=== PATIENT | female | born 1995 | race Caucasian/White ===

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

== ENCOUNTER 2017-09-04 06:29 | Inpatient (IN) | payer OTHER ==
[~2017-09-04] VITALS: Ht 154.9 cm; Wt 63.0 kg
[2017-09-04] VITALS (12 sets, daily range): BP systolic 104–128; BP diastolic 57–78
[2017-09-04] MEDS ORDERED: PERCOCET 5/31 TABLET PO (07:21)
[2017-09-04] MEDS ORDERED: BENADRYL50 MG PO (07:22)
[2017-09-04 08:55] LABS: AMPHETAMINE NEGATIVE (500 ng/mL); BARBITURATES NEGATIVE (200 ng/mL); BENZODIAZEPINES NEGATIVE (150 ng/mL); BUPRENORPHINE NEGATIVE (10 ng/mL); COCAINE NEGATIVE (150 ng/mL); METHADONE NEGATIVE (200 ng/mL); METHAMPHETAMINE NEGATIVE (500 ng/mL); OPIATES (MORPHINE) NEGATIVE (100 ng/mL); OXYCODONE PRESUMPTIVE POSITIVE (100 ng/mL); PHENCYCLIDINE NEGATIVE (25 ng/mL); PROPOXYPHENE NEGATIVE (300 ng/mL); THC CANNABINOIDS NEGATIVE (50 ng/mL); TRICYCLIC ANTIDEPRESSANTS NEGATIVE (300 ng/mL)
[2017-09-04 08:56] LABS: BASOPHIL (%) 0.4 % (0-1); BASOPHIL COUNT 0.1 K/uL (0-0.1); EOSINOPHIL (%) 0.7 % (0-5); EOSINOPHIL COUNT 0.1 K/uL (0-0.3); HEMATOCRIT 34.5 % (36.0-46.0); HEMOGLOBIN 11.4 G/DL (11.9-15.5); IMMATURE GRANULOCYTE (%) 0.6 % (0.0-0.7); LYMPHOCYTE (%) 21.1 % (15-42); MCH 24.7 PG (29.0-34.0); MCV 74.7 FL (83-99); MONOCYTE (%) 7.2 % (3-12); NEUTROPHIL COUNT 9.9 K/uL (1.8-6.4); PLATELET COUNT 248 K/uL (156-360); RBC DIS.WIDTH-CV 14.9 % (11.8-14.6); RBC DIS.WIDTH-SD 40.1 % (39-53); RED BLOOD COUNT 4.62 M/uL (3.80-5.20); WHITE BLOOD COUNT 14.2 K/uL (4.1-10.2)
[2017-09-05 05:50] LABS: BASOPHIL (%) 0.2 % (0-1); BASOPHIL COUNT 0.1 K/uL (0-0.1); EOSINOPHIL (%) 0.7 % (0-5); EOSINOPHIL COUNT 0.2 K/uL (0-0.3); HEMATOCRIT 33.7 % (36.0-46.0); HEMOGLOBIN 10.8 G/DL (11.9-15.5); IMMATURE GRANULOCYTE (%) 0.8 % (0.0-0.7); LYMPHOCYTE (%) 15.5 % (15-42); LYMPHOCYTE COUNT 3.3 K/uL (1.0-2.8); MCH 24.7 PG (29.0-34.0); MCV 76.9 FL (83-99); MONOCYTE (%) 9.4 % (3-12); NEUTROPHIL (%) 73.4 % (45-76); NEUTROPHIL COUNT 15.7 K/uL (1.8-6.4); PLATELET COUNT 238 K/uL (156-360); RBC DIS.WIDTH-SD 41.2 % (39-53); RED BLOOD COUNT 4.38 M/uL (3.80-5.20); WHITE BLOOD COUNT 21.4 K/uL (4.1-10.2)
[2017-09-05 16:30] VITALS: BP 97/56
[2017-09-06 07:23] VITALS: BP 101/58
[2017-09-06] MEDS ORDERED: DOCUSATE SODIU100 MG PO (10:09)
[2017-09-06] MEDS ORDERED: CAMILA0.35 MG PO (10:09)
[2017-09-06] MEDS ORDERED: IBUPROFEN800 MG PO (10:09)
[2017-09-06] MEDS ORDERED: FERROCITE324 MG PO (10:10)
== END 2017-09-06 16:00 | disposition home or self-care (01) | DRG 775 ==
LOC: LDRP-OP 06:29 → 2WEST 06:30 → LDRP-OP 08:17 → 2WEST 12:33
PROVIDERS: Advanced Practice Midwife
DX: O71.4 Obstetric high vaginal laceration alone (principal); O63.0 Prolonged first stage (of labor); O69.81X0 Labor and delivery complicated by cord around neck, without compression, not applicable or unspecified; O48.0 Post-term pregnancy; O99.02 Anemia complicating childbirth; D62 Acute posthemorrhagic anemia; Z3A.40 40 weeks gestation of pregnancy; Z37.0 Single live birth
CPT/HCPCS: 85025

== ENCOUNTER 2017-09-18 13:11 | Inpatient (IN) | payer OTHER ==
[~2017-09-18] VITALS: Ht 154.9 cm; Wt 57.8 kg
[~2017-09-18 13:11] MED LIST changes: +BENADRYL50 MG PO; +CAMILA0.35 MG PO; +DOCUSATE SODIU100 MG PO; +FERROCITE324 MG PO; +IBUPROFEN800 MG PO; +PERCOCET 5/31 TABLET PO
[2017-09-18 14:10] LABS: HEMATOCRIT 36.1 % (36.0-46.0); HEMOGLOBIN 11.8 G/DL (11.9-15.5); MCH 24.9 PG (29.0-34.0); MCHC 32.7 G/DL (30.0-36.0); MCV 76.3 FL (83-99); PLATELET COUNT 250 K/uL (156-360); RBC DIS.WIDTH-CV 14.8 % (11.8-14.6); RBC DIS.WIDTH-SD 41.4 % (39-53); RED BLOOD COUNT 4.73 M/uL (3.80-5.20); WHITE BLOOD COUNT 21.2 K/uL (4.1-10.2)
[2017-09-18 14:29] LABS: APPEARANCE SL.HAZY ((CLEAR)); BILIRUBIN NEGATIVE; BLOOD LARGE; COLOR YELLOW ((YELLOW)); GLUCOSE (STRIP) NEGATIVE; KETONES NEGATIVE; LEUKOCYTES MODERATE; NITRITE NEGATIVE; PROTEIN (STRIP) NEGATIVE; SPECIFIC GRAVITY 1.016 (1.000-1.030); UROBILINOGEN 0.2 MG/DL (0.2-1.0)
[2017-09-18 14:39] LABS: BACTERIA NONE SEEN /HPF; EPITHELIAL CELLS RARE /HPF; MUCUS TRACE /LPF; RED BLOOD CELLS TNTC /HPF (0-5); UCUL ADDED? YES; WHITE BLOOD CELLS 15-20 /HPF (0-5)
[2017-09-18 14:59] LABS: QUANTITATIVE HCG < 4.0 MIU/ML
[2017-09-18 15:12] LABS: ALBUMIN 3.8 G/DL (3.2-4.8); CHLORIDE 102 MEQ/L (99-109); POTASSIUM 3.8 MEQ/L (3.7-5.4); SODIUM 137 MEQ/L (136-147); TOTAL BILIRUBIN 0.8 MG/DL (0.0-1.0)
[2017-09-18 15:17] LABS: ALKALINE PHOSPHATASE 110 IU/L (3-129); ALT (GPT) 13 IU/L (3-49); AST (GOT) 13 IU/L (2-34); CREATININE 0.7 MG/DL (0.6-1.3); GFR ESTIMATE (CALCULATED) > 59 mL/min/; GLUCOSE 103 mg/dL (70-99); TOTAL PROTEIN 6.4 G/DL (6.4-8.3); UREA NITROGEN (BUN) 8 mg/dL (9-23)
[2017-09-18] MEDS ORDERED: MACROBID100 MG PO (16:50)
[2017-09-18] MEDS ORDERED: FERROCITE324 MG PO (16:50)
[2017-09-18 17:17] LABS: INTER. NORMALIZED RATIO 1.2
[2017-09-18 17:19] LABS: PTT 29.4 SEC (25-37)
[2017-09-18 17:49] LABS: TROP-I INTERPRETATION NEGATIVE; TROPONIN-I 0.07 ng/mL (0.0-0.30)
[2017-09-18 19:24] LABS: INTER. NORMALIZED RATIO 1.2
[2017-09-18 19:27] LABS: PTT 29.9 SEC (25-37)
[2017-09-18 19:47] LABS: TROP-I INTERPRETATION NEGATIVE; TROPONIN-I < 0.01 ng/mL (0.0-0.30)
[2017-09-19 01:08] VITALS: BP 93/53
[2017-09-19 03:25] VITALS: BP 107/55
[2017-09-19 06:40] LABS: BASOPHIL COUNT 0.1 K/uL (0-0.1); EOSINOPHIL (%) 4.6 % (0-5); EOSINOPHIL COUNT 0.6 K/uL (0-0.3); HEMATOCRIT 33.9 % (36.0-46.0); HEMOGLOBIN 10.7 G/DL (11.9-15.5); IMMATURE GRANULOCYTE (%) 0.6 % (0.0-0.7); LYMPHOCYTE (%) 14.3 % (15-42); LYMPHOCYTE COUNT 1.8 K/uL (1.0-2.8); MCH 24.5 PG (29.0-34.0); MCHC 31.6 G/DL (30.0-36.0); MCV 77.6 FL (83-99); MONOCYTE (%) 5.3 % (3-12); MONOCYTE COUNT 0.7 K/uL (0-0.8); NEUTROPHIL (%) 74.2 % (45-76); NEUTROPHIL COUNT 9.3 K/uL (1.8-6.4); PLATELET COUNT 214 K/uL (156-360); RBC DIS.WIDTH-SD 42.6 % (39-53); RED BLOOD COUNT 4.37 M/uL (3.80-5.20); WHITE BLOOD COUNT 12.6 K/uL (4.1-10.2)
[2017-09-19 07:04] LABS: CREATININE 0.6 MG/DL (0.6-1.3); GFR ESTIMATE (CALCULATED) > 59 mL/min/; GLUCOSE 97 mg/dL (70-99); POTASSIUM 3.7 MEQ/L (3.7-5.4); SODIUM 143 MEQ/L (136-147); UREA NITROGEN (BUN) 4 mg/dL (9-23)
[2017-09-19 07:18] LABS: CHLORIDE 114 MEQ/L (99-109)
[2017-09-19 07:25] VITALS: BP 103/53
[2017-09-19 11:47] VITALS: BP 112/68
[2017-09-19] MEDS ORDERED: DYNAPEN 250 MG250 MG PO (12:37)
[2017-09-19 15:58] VITALS: BP 102/60
[2017-09-19 20:15] VITALS: BP 114/55
[2017-09-20 00:02] VITALS: BP 115/56
[2017-09-20 03:43] VITALS: BP 110/60
[2017-09-20 06:06] LABS: HEMATOCRIT 33.9 % (36.0-46.0); HEMOGLOBIN 10.4 G/DL (11.9-15.5); MCHC 30.7 G/DL (30.0-36.0); MCV 78.3 FL (83-99); PLATELET COUNT 218 K/uL (156-360); RBC DIS.WIDTH-CV 14.8 % (11.8-14.6); RBC DIS.WIDTH-SD 42.6 % (39-53); RED BLOOD COUNT 4.33 M/uL (3.80-5.20); WHITE BLOOD COUNT 7.6 K/uL (4.1-10.2)
[2017-09-20 06:23] LABS: CHLORIDE 109 MEQ/L (99-109); CREATININE 0.6 MG/DL (0.6-1.3); GFR ESTIMATE (CALCULATED) > 59 mL/min/; GLUCOSE 91 mg/dL (70-99); POTASSIUM 3.8 MEQ/L (3.7-5.4); SODIUM 142 MEQ/L (136-147); UREA NITROGEN (BUN) 5 mg/dL (9-23)
[2017-09-20 07:19] VITALS: BP 101/60
[2017-09-20 15:53] VITALS: BP 97/59
[2017-09-20] MEDS ORDERED: KEFLEX500 MG PO (17:03)
== END 2017-09-20 17:29 | disposition home or self-care (01) | DRG 872 ==
LOC: EME 13:11 → EDOF 19:33 → 2EAST 19:33 → CANRESERV 19:46 → ENRESERV 19:46 → CANRESERV 22:59 → EDOF 09-19 00:54 → 2EAST 09-19 00:55
PROVIDERS: Hospitalist; Internal Medicine; Physician Assistant
DX: A41.9 Sepsis, unspecified organism (principal); O86.21 Infection of kidney following delivery; O91.22 Nonpurulent mastitis associated with the puerperium; M54.5 Low back pain; I95.9 Hypotension, unspecified; L27.0 Generalized skin eruption due to drugs and medicaments taken internally; T36.1X5A Adverse effect of cephalosporins and other beta-lactam antibiotics, initial encounter; Y92.230 Patient room in hospital as the place of occurrence of the external cause; K76.0 Fatty (change of) liver, not elsewhere classified; Z87.440 Personal history of urinary (tract) infections; Z88.1 Allergy status to other antibiotic agents
CPT/HCPCS: 71045; 74177; 80048; 80053; 81003; 83605; 84484; 84702; 85025; 85027; 85610; 85730; 87040; 87086; 87641; 99281; 99285; C9113; J0690; J0696; J1335; J7030; J7050; S0028